=== PATIENT | male | born 1975 | race African-American/Black ===

== ENCOUNTER 2016-12-11 11:34 | Inpatient (IN) | payer OTHER ==
[2016-12-11 12:08] VITALS: BMI 23.3
--- NOTE | 2016-12-11 15:42 | HP ---
Admission [facility] Chief Complaint: REHAB TREATMENT FOR DRUG ADDICTION Allergies/Adverse Reactions: Allergies Allergy/AdvReac Type Severity Reaction Status Date / Time sulfamethoxazole Allergy Unknown Verified 12/11/16 12:44 [From Bactrim] trimethoprim [From Bactrim] Allergy Unknown Verified 12/11/16 12:44 History of Present Illness: 41 YR OLD AA/MALE WITH A HX OF METHAMPHETAMINE AND MARIJUANA DEPENDENCE SEEKING REHAB [place]. Exam Limitations: No Limitations - Ebola screening Have you traveled outside of the country in the last 21 days: No Have you had contact with anyone from an Ebola affected area: No Have you been sick,other than usual withdrawal symptoms: No - Review of Systems Constitutional: Changes in sleep, Unintentional Wgt. Loss EENT: reports: No Symptoms Reported Respiratory: reports: No Symptoms reported Cardiac: reports: No Symptoms Reported GI: reports: Diarrhea, Nausea, Poor Fluid Intake, Vomiting : reports: No Symptoms Reported Musculoskeletal: reports: Back Pain, Joint Pain, Muscle Pain Integumentary: reports: Rash (GROIN/HANDS/HEAD) Neuro: reports: Headache Endocrine: reports: No Symptoms Reported Hematology: reports: Anemia (NO MEDS) Psychiatric: reports: Orientated x3, Anxious Other Systems: Reviewed and Negative Patient History - Patient Medical History Hx Anemia: Yes Hx Asthma: No Hx Chronic Obstructive Pulmonary Disease (COPD): No Hx Cardiac Disorders: No Hx Hypertension: No Hx Hypercholesterolemia: No HX Cerebrovascular Accident: No Hx Seizures: No Hx Diabetes: No Hx Gastrointestinal Disorders: No Hx Genitourinary Disorders: No Hx Sexually Transmitted Disorders: Yes (GENITAL HERPES) Hx Renal Disease (ESRD): No Hx Thyroid Disease: No Hx Human Immunodeficiency Virus (HIV): Yes (SINCE 2002;ON TRIUMEQ;DENIES OIs.) Hx Hepatitis C: Yes (TREATED WITH HARVONI) Hx Depression: No Hx Suicide Attempt: No (DENIES) Hx Bipolar Disorder: No Hx Schizophrenia: No - Patient Surgical History Past Surgical History: Yes Hx Lung Surgery: Yes (CHEST TUBE LEFT LUNG DUE TO FLUID IN LUNG IN 2004) Hx Breast Surgery: No Hx Breast Biopsy: No Hx Abdominal Surgery: No Hx Appendectomy: No Hx Cholecystectomy: No Hx Genitourinary Surgery: No Hx Orthopedic Surgery: No Anesthesia Reaction: No - PPD History Previous Implant?: Yes Implanted On Prior R Admission?: No Results: TO BE DONE PPD to be Administered?: Yes - Reproductive History Patient is a Female of Child Bearing Age (11 -55 yrs old): No (MALE) - Smoking Cessation Smoking history: Former smoker Have you smoked in the past 12 months: No If you are a former smoker, when did you quit?: 2 YRS Hx Chewing Tobacco Use: No Initiated information on smoking cessation: No - Substance & Tx. History Hx Alcohol Use: No Hx Substance Use: Yes (MARIJUANA/METHAMPHETAMINE) Substance Use Type: Marijuana Hx Substance Use Treatment: No (FIRST TIME IN TREATMENT) - Substances Abused Marijuana/Hashish Route: Smoking Frequency: Daily Amount used: 4 BAGS Age of first use: 18 Date of Last Use: 12/09/16 Methamphetamine Route: Inhalation (AND SMOKING) Frequency: 1-3 times last 30 days (TWICE A MONTH) Amount used: 1 BAG Age of first use: 40 Date of Last Use: 12/11/16 Family Disease History - Family Disease History Family Disease History: Other: Father (HTN), Mother (CRACK ADDICTION IN REMISSION) Admission Physical Exam S - Vital Signs Vital Signs: Vital Signs - 24 hr 12/11/16 12:03 Temperature 96.4 F L Pulse Rate 97 H Respiratory 18 Rate Blood Pressure 105/70 - Physical General Appearance: Yes: No Apparent Distress, Irritable, Anxious HEENTM: Yes: EOMI, Normocephalic, BOLA, Pharynx Normal Respiratory: Yes: Chest Non-Tender, Lungs Clear, Normal Breath Sounds, No Respiratory Distress Neck: Yes: Supple, Trachea in good position Breast: Yes: Breast Exam Deferred Cardiology: Yes: Regular Rhythm, Regular Rate, S1, S2 Abdominal: Yes: Normal Bowel Sounds, Non Tender, Flat, Soft Genitourinary: Yes: Other (N/C) Back: Yes: Within Normal Limits Musculoskeletal: Yes: full range of Motion, Gait Steady Extremities: Yes: Normal Range of Motion, Non-Tender Neurological: Yes: prototyper II-XII NML intact, Fully Oriented, Alert Integumentary: Yes: Dry, Warm, Rash Lymphatic: Yes: Within Normal Limits - Diagnostic (1) Cannabis dependence, uncomplicated Current Visit: Yes Status: Chronic (2) Methamphetamine abuse Current Visit: Yes Status: Chronic (3) HIV (human immunodeficiency virus infection) Current Visit: Yes Status: Chronic (4) History of hepatitis C Current Visit: Yes Status: Chronic (5) History of anemia Current Visit: Yes Status: Suspected Cleared for Admission [facility] - Detox or Rehab Claeared for Rehab Admission: Yes [facility] Breath Alcohol Content Breath Alcohol Content: 0 Urine Drug Screen - Results Urine Drug Screen Results: THC-Marijuana, AMP-Amphetamines, MET-Methamphetamine
[2016-12-11] MEDS ORDERED: MAGNESIUM HYDROX 2400MG/30ML ORAL SUSPENSION 30 ML CUP PO PRN (15:50)
[2016-12-11] MEDS ORDERED: ACETAMINOPHEN 325 MG TABLET (FP) PO PRN (15:50)
[2016-12-11] MEDS ORDERED: guaiFENesin/D-METHORPHAN HB 10 ML UNIT-DOSE CUPS PO PRN (15:50)
[2016-12-11] MEDS ORDERED: MENTHOL/PHENOL 1 EACH UD MM PRN (15:50)
[2016-12-11] MEDS ORDERED: hydrOXYzine PAMOATE 25 MG CAPSULE (FP) PO PRN (15:50)
[2016-12-11] MEDS ORDERED: P-EPHED 60MG/TRIPROLIDI 2.5MG TABLET PO PRN (15:50)
[2016-12-11] MEDS ORDERED: MAG HYDROX/AL HYDROX/SIMETH 30 ML UNIT-DOSE CUP PO PRN (15:50)
[2016-12-11] MEDS ORDERED: LOPERAMIDE HCL 2 MG CAPSULE PO PRN (15:50)
[2016-12-11] MEDS ORDERED: MAGNESIUM CITRATE 300 ML BOTTLE PO PRN (15:50)
[2016-12-11] MEDS ORDERED: IBUPROFEN 400 MG TABLET (FP) PO PRN (15:50)
[2016-12-11] MEDS ORDERED: KETOCONAZOLE 2 % SHAMPOO 120 ML BOTTLE TP SCH (19:00)
--- NOTE | 2016-12-11 19:28 | PN ---
[facility] Progress Note Note: POSITIVE PPD CHEST X RAY CONTINUE REHAB
[2016-12-11 20:04] LABS: URINE APPEARANCE CLEAR; URINE BILIRUBIN NEGATIVE (NEGATIVE); URINE BLOOD NEGATIVE (NEGATIVE); URINE COLOR YELLOW; URINE GLUCOSE (UA) NEGATIVE (NEGATIVE); URINE KETONE NEGATIVE (NEGATIVE); URINE NITRITE NEGATIVE (NEGATIVE); URINE UROBILINOGEN 2.0 E.U/dl E.U./dl (0.2-1.0)
[2016-12-11 20:05] LABS: URINE LEUK ESTERASE 1+ (NEGATIVE); URINE PROTEIN 1+ (NEGATIVE)
[2016-12-11 20:07] LABS: URINE MUCUS FEW; URINE RBC 2 /hpf (0-3); URINE WBC 46 /hpf (3-5)
[2016-12-11] MEDS: HYDROCORTISONE 1% TOPICAL OINT 30 GM TUBE TP SCH (22:12)
[2016-12-11] MEDS: THIAMINE HCL 100 MG TABLET (FP) PO SCH (22:12)
[2016-12-11] MEDS: diphenhydrAMINE HCL 50 MG CAPSULE PO PRN (23:24)
[2016-12-12 10:13] LABS: MCHC 33.6 g/dl (32.0-35.9); MEAN CELL VOLUME 98.4 fl (80-96); MEAN PLT VOLUME 8.4 fl (7.5-11.1); PLATELET COUNT 283 K/MM3 (134-434); RDW 13.6 % (11.9-15.9); WHITE BLOOD COUNT 6.5 K/mm3 (4.0-10.0)
[2016-12-12] MEDS: PRENATAL VITAMINS W/ FOLIC ACID TABLET (FP) PO SCH (10:24)
[2016-12-12] MEDS: HYDROCORTISONE 1% TOPICAL OINT 30 GM TUBE TP SCH ×2 (10:27→21:24)
[2016-12-12 11:00] LABS: ALK PHOS 100 U/L (45-117); ANION GAP 10 (8-16); BILIRUBIN,TOTAL 0.4 mg/dL (0.2-1.0); CALCIUM 8.8 mg/dL (8.5-10.1); CO2 25 mmol/L (21-32); CREATININE 1.1 mg/dL (0.7-1.3); GLUCOSE,RANDOM 95 mg/dL (74-106); SGOT/AST 18 U/L (15-37); SGPT/ALT 10 U/L (12-78); TOT PROT 8.2 g/dl (6.4-8.2)
[2016-12-12 11:29] LABS: SICKLE CELL SCREEN NEGATIVE (NEGATIVE)
--- NOTE | 2016-12-12 12:07 | HP ---
Psychiatrist Admission - Data Date of interview: 12/12/16 Admission source: [facility] Identifying data: This is the first inpatient rehabilitation admission for this 41 year old single male with 2 children residing in [place]. Medical History: HIV+ since 2002, HepC, Tuberculosis, heart attack in 2016,. and he is s/p chest tube to left lung (2016). Psychiatric History: Patient denies history of psychiatric treatment. Physical/Sexual Abuse/Trauma History: Patient denies history of sexual, physical and verbal abuse. Vital Signs: Vital Signs - 24 hr 12/11/16 12/12/16 12/12/16 12:03 00:42 03:28 Temperature 96.4 F L Pulse Rate 97 H Respiratory 18 16 16 Rate Blood Pressure 105/70 12/12/16 06:55 Temperature 98.1 F Pulse Rate 96 H Respiratory 18 Rate Blood Pressure 133/79 Allergies/Adverse Reactions: Allergies Allergy/AdvReac Type Severity Reaction Status Date / Time sulfamethoxazole Allergy Unknown Verified 12/11/16 12:44 [From Bactrim] trimethoprim [From Bactrim] Allergy Unknown Verified 12/11/16 12:44 Date of last physical exam: 12/11/16 Concur with the findings of this exam: Yes - Substance Abuse/Tx History Hx Alcohol Use: No Hx Substance Use: Yes (Methamphetamine) Substance Use Type: Marijuana (daily use) Hx Substance Use Treatment: No (first rehab. tx) - Admission Criteria Previous failed treatment: No Poor recovery environment: Yes Comorbidities: No Lacks judgement: Yes Mental Status Exam - Mental Status Exam Alert and Oriented to: Time, Place, Person Cognitive Function: Grossly Intact Patient Appearance: Well Groomed Mood: Hopeful Patient Behavior: Appropriate, Cooperative Speech Pattern: Clear, Appropriate Voice Loudness: Normal Thought Process: Goal Oriented Thought Disorder: Not Present Hallucinations: Denies Suicidal Ideation: Denies Homicidal Ideation: Denies Insight/Judgement: Fair Sleep: Fair Appetite: Fair Muscle strength/Tone: Normal Gait/Station: Normal Psychiatric Findings - Problem List ([place] 1, 2,3) (1) Cannabis dependence, uncomplicated Current Visit: Yes Status: Chronic (2) HIV (human immunodeficiency virus infection) Current Visit: Yes Status: Chronic (3) History of hepatitis C Current Visit: Yes Status: Chronic (4) Methamphetamine abuse Current Visit: Yes Status: Chronic (5) History of anemia Current Visit: Yes Status: Suspected - Initial Treatment Plan Initial Treatment Plan: will monitor progress as needed.
[2016-12-12] MEDS: THIAMINE HCL 100 MG TABLET (FP) PO SCH (21:23)
[2016-12-12] MEDS: CLOTRIMAZOLE 1% CREAM 15 GM TUBE TP SCH (21:24)
[2016-12-13] MEDS: FLUCONAZOLE 100 MG TABLET (UD) PO SCH (10:17)
[2016-12-13] MEDS: PRENATAL VITAMINS W/ FOLIC ACID TABLET (FP) PO SCH (10:17)
[2016-12-13] MEDS: CLOTRIMAZOLE 1% CREAM 15 GM TUBE TP SCH ×2 (10:18→21:07)
[2016-12-13] MEDS: HYDROCORTISONE 1% TOPICAL OINT 30 GM TUBE TP SCH ×2 (10:19→21:07)
--- NOTE | 2016-12-13 12:31 | EKG ---
Test Reason : Blood Pressure : / mmHG Vent. Rate : 083 BPM Atrial Rate : 083 BPM P-R Int : 158 ms QRS Dur : 090 ms QT Int : 380 ms P-R-T Axes : 076 083 064 degrees QTc Int : 446 ms NORMAL SINUS RHYTHM MINIMAL VOLTAGE CRITERIA FOR LVH, MAY BE NORMAL VARIANT EARLY REPOLARIZATION BORDERLINE ECG NO PREVIOUS ECGS AVAILABLE Confirmed by MALLORY BOLES, PATRICK ([id number]) on 12/13/2016 12:30:54 PM Referred By: Confirmed By:PATRICK TEJADA MD
[2016-12-13] MEDS: THIAMINE HCL 100 MG TABLET (FP) PO SCH (21:07)
[2016-12-14] MEDS: FLUCONAZOLE 100 MG TABLET (UD) PO SCH (10:12)
[2016-12-14] MEDS: PRENATAL VITAMINS W/ FOLIC ACID TABLET (FP) PO SCH (10:12)
[2016-12-14] MEDS: CLOTRIMAZOLE 1% CREAM 15 GM TUBE TP SCH ×2 (10:13→21:13)
[2016-12-14] MEDS: HYDROCORTISONE 1% TOPICAL OINT 30 GM TUBE TP SCH ×2 (10:13→21:14)
[2016-12-14] MEDS: THIAMINE HCL 100 MG TABLET (FP) PO SCH (21:14)
[2016-12-15] MEDS: FLUCONAZOLE 100 MG TABLET (UD) PO SCH (10:05)
[2016-12-15] MEDS: PRENATAL VITAMINS W/ FOLIC ACID TABLET (FP) PO SCH (10:05)
[2016-12-15] MEDS: CLOTRIMAZOLE 1% CREAM 15 GM TUBE TP SCH ×2 (10:06→21:20)
[2016-12-15] MEDS: HYDROCORTISONE 1% TOPICAL OINT 30 GM TUBE TP SCH ×2 (10:06→21:20)
[2016-12-15] MEDS: THIAMINE HCL 100 MG TABLET (FP) PO SCH (21:20)
[2016-12-16] MEDS: CLOTRIMAZOLE 1% CREAM 15 GM TUBE TP SCH ×2 (10:06→21:51)
[2016-12-16] MEDS: FLUCONAZOLE 100 MG TABLET (UD) PO SCH (10:06)
[2016-12-16] MEDS: HYDROCORTISONE 1% TOPICAL OINT 30 GM TUBE TP SCH ×2 (10:06→21:51)
[2016-12-16] MEDS: PRENATAL VITAMINS W/ FOLIC ACID TABLET (FP) PO SCH (10:06)
[2016-12-16] MEDS: THIAMINE HCL 100 MG TABLET (FP) PO SCH (21:50)
[2016-12-17 07:03] VITALS: PULSE 79
[2016-12-17] MEDS: CLOTRIMAZOLE 1% CREAM 15 GM TUBE TP SCH ×2 (10:05→21:38)
[2016-12-17] MEDS: FLUCONAZOLE 100 MG TABLET (UD) PO SCH (10:05)
[2016-12-17] MEDS: HYDROCORTISONE 1% TOPICAL OINT 30 GM TUBE TP SCH ×2 (10:05→21:38)
[2016-12-17] MEDS: PRENATAL VITAMINS W/ FOLIC ACID TABLET (FP) PO SCH (10:05)
[2016-12-17] MEDS: THIAMINE HCL 100 MG TABLET (FP) PO SCH (21:37)
[2016-12-17] MEDS: diphenhydrAMINE HCL 50 MG CAPSULE PO PRN (23:06)
[2016-12-18 07:01] VITALS: BP 123/79; TEMP 98.2
[2016-12-18] MEDS: PRENATAL VITAMINS W/ FOLIC ACID TABLET (FP) PO SCH (10:05)
[2016-12-18] MEDS: FLUCONAZOLE 100 MG TABLET (UD) PO SCH (10:05)
[2016-12-18] MEDS: CLOTRIMAZOLE 1% CREAM 15 GM TUBE TP SCH (10:06)
[2016-12-18] MEDS: HYDROCORTISONE 1% TOPICAL OINT 30 GM TUBE TP SCH (10:06)
--- NOTE | 2016-12-18 13:34 | PN ---
Psychiatric Progress Note Vital Signs: Vital Signs Period Temp Pulse Resp BP Sys/Ritter Pulse Ox Last 24 Hr 98.2 F 79 16-18 123/79 Date of Session: 12/18/16 Chief Complaint:: discharge visit HPI: Patient addressing cannabis, methamphetamine dependence. ROS: HIV+ since 2002, HepC, Tuberculosis, heart attack in 2016, Current Medications: Active Medications Generic Name Dose Route Start Last Admin Trade Name Freq PRN Reason Stop Dose Admin Acetaminophen 650 mg 12/11/16 15:50 Tylenol - PO Q4H PRN PAIN Al Hydroxide/Mg Hydroxide 30 ml 12/11/16 15:50 Mylanta Oral Suspension - PO Q6H PRN DYSPEPSIA Clotrimazole 1 applic 12/12/16 22:00 12/18/16 10:06 Lotrimin 1% Cream - TP 1 applic BID ALETA Administration Diphenhydramine HCl 50 mg 12/11/16 15:50 12/17/16 23:06 Benadryl - PO 50 mg HSMR1 PRN Administration INSOMNIA Eucalyptus/Menthol/Phenol/Sorbitol 1 each 12/11/16 15:50 Cepastat Lozenge - MM Q4H PRN SORE THROAT Fluconazole 100 mg 12/13/16 10:00 12/18/16 10:05 Diflucan - PO 100 mg DAILY ALETA Administration Guaifenesin 10 ml 12/11/16 15:50 Robitussin Dm - PO Q6H PRN COUGH Hydrocortisone 1 applic 12/11/16 22:00 12/18/16 10:06 Hytone 1% Ointment - TP Not Given BID ALETA Hydroxyzine Pamoate 25 mg 12/11/16 15:50 Vistaril - PO Q4H PRN AGITATION Ibuprofen 400 mg 12/11/16 15:50 Motrin - PO Q6H PRN SEVERE PAIN Loperamide HCl 4 mg 12/11/16 15:50 Imodium - PO Q6H PRN DIARRHEA Magnesium Citrate 300 ml 12/11/16 15:50 Citroma - PO Q48H PRN CONSTIPATION Magnesium Hydroxide 30 ml 12/11/16 15:50 Milk Of Magnesia - PO DAILY PRN CONSTIPATION Non-Formulary Medication 1 each 12/12/16 22:00 12/17/16 21:38 Abacavir/Dolutegravir/Lamivudi [Triumeq Tablet] PO 1 each HS ALETA Administration Multivit/Folic Acid/Iron 1 tab 12/12/16 10:00 12/18/16 10:05 Vitamins (Sjr) - PO 1 tab DAILY ALETA Administration Pseudoephedrine/Triprolidine 1 combo 12/11/16 15:50 Actifed - PO TID PRN NASAL CONGESTION Thiamine HCl 100 mg 12/11/16 22:00 12/17/16 21:37 Vitamin B1 - PO 100 mg HS ALETA Administration Current Side Effect: No Lab tests ordered: No Lab tests reviewed: Yes Provider note:: Patient requested to leave treatment, stated that his father is in a [facility] and not doing well. Therefore needed to leave early after 7 days. Patient reports he will come back and will follow up with [facility]. Patient understands the importance of importance of changing attitude for the utilization supports to perevtn relapses, patient is stable for discharge. Total face to face time:: 20 Mental Status Exam - Mental Status Exam Alert and Oriented to: Time, Place, Person Cognitive Function: Good Patient Appearance: Well Groomed Mood: Hopeful Affect: Appropriate, Mood Congruent Patient Behavior: Cooperative Speech Pattern: Appropriate Voice Loudness: Normal Thought Process: Intact, Goal Oriented Thought Disorder: Not Present Hallucinations: Denies Suicidal Ideation: Denies Homicidal Ideation: Denies Insight/Judgement: Fair Sleep: Fair Appetite: Fair Muscle strength/Tone: Normal Gait/Station: Normal Psychiatric Treatment Plan - Problem List (1) Cannabis dependence, uncomplicated Current Visit: Yes (2) HIV (human immunodeficiency virus infection) Current Visit: Yes (3) History of hepatitis C Current Visit: Yes (4) Methamphetamine abuse Current Visit: Yes (5) History of anemia Current Visit: Yes
== END 2016-12-18 13:20 | disposition home or self-care (01) | DRG 772 ==
LOC: YASAS 11:34 → Y5N 14:50
PROVIDERS: ADMIT Psychiatry & Neurology Psychiatry; ATTEND Psychiatry & Neurology Psychiatry
PROC: HZ42ZZZ Group Counseling for Substance Abuse Treatment, Cognitive-Behavioral (ICD-10-PCS; principal; 2016-12-18)
DX: F12.20 Cannabis dependence, uncomplicated (principal); F15.10 Other stimulant abuse, uncomplicated; B18.2 Chronic viral hepatitis C; Z21 Asymptomatic human immunodeficiency virus [HIV] infection status; D64.9 Anemia, unspecified
CPT/HCPCS: 36415; 71020-TC; 80053; 81003; 81015; 85027; 85660; 86593; 93005; 93010